=== PATIENT | male | born 1995 | race Two or more races ===

== ENCOUNTER 2023-05-04 15:21 | Outpatient (CLI) | payer OTHER ==
--- NOTE | 2023-05-04 16:04 | Sleep Patient Instructions ---
Sleep Center Visit Summary - Patient Visit Information Reason for Visit: Initial consult for evaluation of sleep disordered breathing and other sleep issues. - Patient Instructions Instructions Attached: Sleep Study Home Monitor Additional Instructions: You will be completing a sleep study, either an in-lab polysomnography (PSG) or home sleep study (HST). You will follow-up in the sleep care office after the sleep study is completed to hear the results and talk about therapy, if needed. You will be called by our office staff to schedule this appointment, but you may contact us with any questions. - Clinic Information Contact: [facility] [address] [place] [address] [email or web address] T: [phone]
--- NOTE | 2023-05-04 16:11 | SLEEP CARE CONSULTATION ---
Information from patient questionnaire entered by Kerry Iraheta. I have reviewed and concur with the information entered by Kerry Iraheta. This document represents the service I personally performed and the decisions made by me, Keerthi Harris ARNP. History of Present Illness Service Date and Time: 05/04/2023 1521 Reason for Visit: New patient Chief Complaint: reports: Insomnia (4+YRS), Unrefreshed sleep (4+YRS), Snoring (MOST OF LIFE), Observed pauses in breathing (MOST OF LIFE), Frequent awakenings at night (4+YRS) Usual bedtime: 11PM Time it takes to fall asleep: 30MINS TO 2HRS Snores at night: Yes Observed to quit breathing while asleep: Yes Sleeps alone due to snoring: No Number of times waking at night: 2-6 Reasons for waking at night: reports: Bathroom, Other (UNKNOWN). denies: Choking, Snoring, Gasping for air Toss, Turn, or Twitch while sleeping: Yes Recalls having dreams: Yes Usually gets out of bed at: 3-8AM Feels refreshed in the morning: No Morning headache: No Sleepy or fatigued during the day: Yes (some unintentional naps, not often) Ever fallen asleep while driving: No Takes day naps: Yes (3 times a month, 2-10 hours is average) Dreams during day naps: Yes Prior sleep studies: No Additional HPI information: I had the pleasure of seeing PATRICE GANDHI today regarding the possibility of him having a sleep disorder. His current complaints are frequent night awakenings, insomnia, observed pauses in breathing, snoring and unrefreshed sleep. He says he asked for a referral because he has "issues" with his sleep. He will have times that he goes to bed late and then wake up early in morning, after 2-3 hours and not be able to goes back to sleep. He does not wake up feeling rested. He has been told that he snores. He has sinus issues and his nose will get so congested that he has to breathe through his mouth. He has been told that he has pauses in breathing in his sleep. He does talk in his sleep. He does dream and remembers them. He says he has "fears" about getting up in time to get to work. If he cannot get to sleep and only has a few hours before he is suppose to get up, he will just not sleep that night. He had a time when he slept through his alarms and got in trouble at work because he was late for work and someone had to come to his home to get him up. He says sometimes he "dwells" on things that happen that will affect his ability to go to sleep. If there is a situation at work that bothers him and he does not deal with it before he goes home, he will think about it all night and not sleep well. He has ADHD, anxiety and depression issues for which he is treated. - Parasomnia Symptoms Ever been unable to move upon waking from sleep: Yes (sometimes) Walks in sleep: No Talks in sleep: Yes Ever acted out dreams in sleep: Yes (with vivid dreams; will have something in hand) Ever felt weak in the knees when startled or emotional: No Bothered by creepy, crawly, restless sensations in legs: Yes (4-5 times in a month) Problems with memory or concentration: Yes (both; treated for ADHD) Subjective Initial [place] Sleepiness Scale score: 9 (05/04/23) Past Medical History Past Medical History: reports: Anxiety, Asthma, Depression, Attention deficit Social History The patient's occupation is a AM. Patient is Single and lives in . Have you smoked in the past 12 months: Yes (vapes too) Cigarettes per day (20/pack): 20 Years of smokin Smoking Pack Years: 7.0 Alcohol use: Yes Alcohol amount and frequency: 2-5 DRINKS 2-3 XA MONTH Caffeine use: Yes Caffeine amount and frequency: 1-2 CANS M-F Family History Family history of sleep disordered breathing: Yes Family Hx Sleep Apnea: Mother: Snoring, Father: Snoring, Sibling: Snoring Allergies and Home Medications Known drug allergies: No Drug allergies reviewed: Yes Home medication list reviewed: Yes Allergy and home medication list: Allergies No Known Drug Allergies Allergy (Verified 04/29/23 17:19) Home Medications Medication Instructions Recorded Confirmed Last Taken Type Dextroamphetamine/Amphetamine See Rx Instructions .ROUTE .COMPLEX 05/04/23 05/04/23 Unknown History [Adderall 10 mg Tablet] Escitalopram [Lexapro] See Rx Instructions .ROUTE .COMPLEX 05/04/23 05/04/23 Unknown History Review of Systems Weight loss over past 5 years: 20 Cardiovascular: denies: high blood pressure Respiratory: reports: shortness of breath Gastrointestinal: denies: heartburn Neurological: denies: headaches Psychiatric: reports: Attention Deficit Hyperactivity, anxiety, depression, mood disorder Ear/Nose/Throat: reports: nasal congestion, sinus problems, nose bleeds, wisdom teeth removed. denies: tonsillectomy Endocrine: reports: sluggishness, too hot or cold, unexplained weakness Musculoskeletal: reports: neck pain, back pain, mobility problems Physical Exam Vital signs obtained and entered by: KERRY Chan MA Blood Pressure: 122/79 (LEFT ARM) Cuff size: regular Heart Rate: 74 O2 Saturation: 100 Height: 5 ft 6 in Weight: 117 lb 9.6 oz Body Mass Index: 18.9 BMI Classification: Normal Neck circumference: 13.5 Mouth and throat: narrow oropharynx Soft palate: long Hard palate: normal Uvula: normal Uvula visualization: 100% Mallampati Class I Tongue: enlarged in size with teeth ying on lateral edges Tonsils: 1+ Neck: normal w/o lymphadenopathy or thyromegaly Heart: regular rate and rhythm Lungs: clear bilaterally Impression and Plan 1. Suspected Obstructive Sleep Apnea-Hypopnea Syndrome, as suggested by a history of loud and irregular snoring, observed cessation of breath while asleep, frequent awakening during the night, unrefreshed sleep and cognitive impairment. Narrow oropharynx and obesity are common predisposing factors for obstructive sleep apnea-hypopnea syndrome. I recommend proceeding to polysomnography to confirm the diagnosis and to assess severity. If the patient has significant sleep disordered breathing, a manual CPAP titration study will also be performed to find the optimal treatment pressure. I informed the patient of what the sleep studies involve and after some discussion, obtained agreement to proceed. The pathophysiology of obstructive sleep apnea-hypopnea syndrome was discussed with the patient and health risks of cardiovascular and cerebrovascular disease if not treated. Risks of drowsy driving discussed in detail and patient advised to avoid long distance driving and to lathe puller at the first sign of drowsiness. Patient agreed to plan. * Schedule polysomnography +- manual CPAP titration study and return in 1-2 weeks after the study to discuss result and initiate therapy. * Avoid long distance driving or driving when feeling sleepy. * Avoid alcohol, sedative and muscle relaxant around bedtime. * Review instructions provided by trained office staff on how to prepare for the sleep study. * Return for follow-up after sleep study completed. Plan: PSG/HST Visit Type: In Office Time Spent with Patient (minutes): 32 Provider Statement: I spent 100% of the Face to Face Visit with the patient with greater than 50% spent counseling the patient and coordination of care.
[2023-05-04 16:13] VITALS: BP 122/79; O2SAT 100
== END 2023-05-04 15:22 | disposition home or self-care (01) ==
LOC: SC 15:21
PROVIDERS: ATTEND Nurse Practitioner Family
DX: G47.00 Insomnia, unspecified (principal); R06.81 Apnea, not elsewhere classified; R53.83 Other fatigue; G47.8 Other sleep disorders
CPT/HCPCS: 99203; 99212

== ENCOUNTER 2023-06-07 12:17 | Outpatient (CLI) | payer OTHER | END 2023-06-07 12:18 | disposition home or self-care (01) | LOC: SC 12:17 | PROVIDERS: ATTEND Nurse Practitioner Family | DX: R06.83 Snoring (principal); G47.8 Other sleep disorders; R06.81 Apnea, not elsewhere classified; R53.83 Other fatigue; F32.A Depression, unspecified | CPT/HCPCS: 95806 ==

== ENCOUNTER 2023-07-23 12:42 | Outpatient (CLI) | payer OTHER ==
--- NOTE | 2023-07-23 13:10 | Sleep Patient Instructions ---
Sleep Center Visit Summary - Patient Visit Information Reason for Visit: HST followup - Patient Instructions Additional Instructions: Your sleep study today was negative for significant sleep disordered breathing. You were found to have episodes of snoring. There are different ways to control snoring including weight loss, oral devices made by a dentist or surgical options through ENT specialist. You should not use oral devices that do not fit properly because they can affect your bite. You should also check insurance coverage of oral devices for snoring because they may not be cover well. You may obtain a referral to an ENT specialist through your primary provider. Follow-up as needed. - Clinic Information Contact: [facility] [address] [place] [id number] [email or web address] T: [phone]
--- NOTE | 2023-07-23 13:16 | SLEEP CARE CONSULTATION ---
Information from patient questionnaire entered by Kerry Iraheta. I have reviewed and concur with the information entered by Kerry Iraheta. This document represents the service I personally performed and the decisions made by , Keerthi Harris ARNP. History of Present Illness Service Date and Time: 07/23/2023 1242 Initial [place] Sleepiness Scale score: 9 (05/04/23) Current [place] Sleepiness Scale score: 10 (07/23/23) Additional HPI information: PATRICE GANDHI returns for follow up and results of the recently performed home sleep study. The patient was informed of the following findings: No significant sleep disordered breathing with an average AHI of 1.2 and gloria oxygen saturation of 93%. I explained the pathophysiology behind obstructive sleep apnea. Patient does not have sleep apnea and was advised how weight gain could increase the risk of developing sleep apnea in the future. Patient has light snoring. Snoring can be reduced by weight loss. Weight loss is best achieved with diet consult. Patient instructed to contact PCP for referral. Snoring can also be treated with an oral appliance from a dentist. Advised to check insurance coverage. In addition, an ENT evaluation can be do to see if other treatment is indicated. Patient counseled not drink alcohol less than 4 hours before bedtime as it can increase snoring and apnea. Patient was cautioned about risks of drowsy driving until sleepiness symptoms resolve. Patient denies drowsy driving. Sleep Study - Results Type of Sleep Study: Home sleep study (COMPLETED 06/07/23) Prior sleep studies: No Polysomnography/Home Sleep Study results: Physician Impression: The quality of the study is good. The length of the study is adequate (> 240 minutes). Please also see the tabulated and graphic data. 1. No significant sleep disordered breathing with an AHI of 1.2/hr and gloria SaO2 of 93%. During the study, the patient had 9 apneas (9 obstructive, 0 central, 0 mixed) and 1 hypopnea. The longest episode lasted 77.5 seconds. The patient slept adequately in supine position (supine AHI was 1.5 and non-supine, 1.12). Allergies and Home Medications Known drug allergies: No Drug allergies reviewed: Yes Home medication list reviewed: Yes (mirtazapine 15 mg for sleep, depression, mood swings) Allergy and home medication list: Allergies No Known Drug Allergies Allergy (Verified 07/21/23 11:08) Review of Systems Review of systems same as previous: Yes (NO CHANGE) Physical Exam Vital signs obtained and entered by: KERRY Chan MA Blood Pressure: 113/77 (RIGHT ARM) Cuff size: regular Heart Rate: 95 O2 Saturation: 98 Height: 5 ft 6 in Weight: 126 lb 12.8 oz Body Mass Index: 20.5 BMI Classification: Normal Impression and Plan 1. Snoring but no significant sleep disordered breathing. Patient advised that maintaining healthy weight loss will reduce snoring as well as apnea risk. An ENT consult can also be helpful to determine if any other treatment is an option. 2. Possible insomnia, unspecified. He has difficulty initiating sleep and will sometimes go days with little sleep because he is afraid of not being able to get up with alarm for work. He will wake up frequently on nights he can go to sleep. He has gotten in trouble for being late to work in the past because he did not awaken to his alarm. He is currently in therapy for his depression, moods and ADHD and was just started on mirtazapine with some improvement of being able to maintain sleep. Insomnia is generally caused by an irregular slee p schedule, spending too much time in bed, napping, caffeine, electronics, lack of a relaxing bedtime ritual and clock watching. Other factors can include anxiety/depression, pain, medications, and obstructive sleep apnea. Patient wishes to follow up with his behavioral health provider before any further evaluation of his sleep is done. * Follow up with behavioral health provider for insomnia * Maintain healthy weight weight * Avoid alcohol consumption near bedtime * Return as needed for follow up. Follow up with Sleep Care in: as needed Visit Type: In Office Time Spent with Patient (minutes): 20 Provider Statement: I spent 100% of the Face to Face Visit with the patient with greater than 50% spent counseling the patient and coordination of care.
[2023-07-23 13:24] VITALS: BP 113/77; O2SAT 98
== END 2023-07-23 12:43 | disposition home or self-care (01) ==
LOC: SC 12:42
PROVIDERS: ATTEND Nurse Practitioner Family
DX: R06.83 Snoring (principal); G47.8 Other sleep disorders; F32.A Depression, unspecified; F90.9 Attention-deficit hyperactivity disorder, unspecified type
CPT/HCPCS: 99212; 99213

== ENCOUNTER 2023-11-02 10:10 | Emergency (ER) | payer OTHER ==
[2023-11-02 11:01] LABS: BASOPHILS % (AUTO) 0.3 %; EOSINOPHILS # (AUTO) 0.1 10^3/uL (0.0-0.7); EOSINOPHILS % (AUTO) 1.4 %; HCT - HEMATOCRIT 43.2 % (42.0-52.0); LYMPHOCYTES # (AUTO) 0.8 10^3/uL (1.5-3.5); MEAN CORPUSCULAR HEMOGLOBIN 28.3 pg (27.0-31.0); MEAN CORPUSCULAR HGB CONC 32.4 g/dL (32.0-36.0); MEAN CORPUSCULAR VOLUME 87.3 fL (80.0-94.0); MEAN PLATELET VOLUME 9.2 fL (7.4-11.4); MONOCYTES # (AUTO) 0.6 10^3/uL (0.0-1.0); MONOCYTES % (AUTO) 9.3 %; NEUTROPHILS # (AUTO) 4.9 10^3/uL (1.5-6.6); NEUTROPHILS % (AUTO) 76.8 %; PLT - PLATELET COUNT 159 10^3/uL (130-450); RED BLOOD COUNT 4.95 10^6/uL (4.70-6.10); RED CELL DISTRIBUTION WIDTH 12.7 % (12.0-15.0); WHITE BLOOD COUNT 6.3 x10^3/uL (4.8-10.8)
[2023-11-02 11:14] LABS: ALBUMIN 4.4 g/dL (3.2-5.5); ALBUMIN/GLOBULIN RATIO 1.6 (1.0-2.2); ALKALINE PHOSPHATASE 62 IU/L (42-121); ALT ALANINE AMINOTRANSFERASE 20 IU/L (10-60); AST ASPARTATE AMINOTRANSFERASE 23 IU/L (10-42); BILIRUBIN,TOTAL 1.4 mg/dL (0.2-1.0); BUN - BLOOD UREA NITROGEN 14 mg/dL (6-20); CALCIUM 9.8 mg/dL (8.5-10.3); CARBON DIOXIDE - CO2 31 mmol/L (21-32); CHLORIDE 100 mmol/L (101-111); GFR - MDRD 89 (>89); GLUCOSE 97 mg/dL (74-104); LIPASE 17 U/L (11-82); POTASSIUM 4.2 mmol/L (3.5-4.5); SODIUM 137 mmol/L (135-145); TOTAL PROTEIN 7.2 g/dL (6.4-8.9)
[2023-11-02 11:20] LABS: TROPONIN I HIGH SENSITIVITY < 2.3 ng/L (2.3-19.7)
--- NOTE | 2023-11-02 12:14 | ED Physician Documentation ---
History of Present Illness - Stated complaint Stated Complaint: SOA LOC - Chief complaint Chief Complaint: Neuro - History obtained from History obtained from: Patient - Additonal information Additional information: 28-year-old male presented after a syncopal episode today. The patient has had several days of cough and URI symptoms, that he likely just had a cold, has been around some others that have been sick. Today he was going to the bathroom, voiding, when he woke up on the floor. No history of seizures, no known seizure-like activity, no injuries in the fall, no loss of bowel or bladder, no tongue biting. He states he had no prodromal symptoms no chest pain or difficulty breathing. He has Had syncopal episode in the past but not routinely, and denies any heart issues to his knowledge. He is in the [employer], works as a telephone claims representative. Review of Systems Constitutional: reports: Reviewed and negative Eyes: reports: Reviewed and negative Ears: reports: Reviewed and negative Nose: reports: Rhinorrhea / runny nose, Congestion Throat: reports: Reviewed and negative Cardiac: reports: Reviewed and negative Respiratory: reports: Cough GI: reports: Reviewed and negative : reports: Reviewed and negative Skin: reports: Reviewed and negative Musculoskeletal: reports: Reviewed and negative Neurologic: reports: Syncope, LOC. denies: Generalized weakness, Focal weakness, Numbness, Difficulty speaking, Seizure, Confused, Headache, Head injury Psychiatric: reports: Reviewed and negative PD PAST MEDICAL HISTORY - Past Medical History Past Medical History: Yes Cardiovascular: None Respiratory: None Neuro: None Endocrine/Autoimmune: None GI: None : None HEENT: None Psych: Anxiety, ADD/ADHD Musculoskeletal: None Derm: None - Past Surgical History Past Surgical History: No - Present Medications Home Medications: Ambulatory Orders Medication Instructions Recorded Confirmed Dextroamphetamine/Amphetamine See Rx Instructions .ROUTE .COMPLEX 05/04/23 11/02/23 [Adderall 10 mg Tablet] Escitalopram [Lexapro] See Rx Instructions .ROUTE .COMPLEX 05/04/23 11/02/23 - Allergies Allergies/Adverse Reactions: Allergies Allergy/AdvReac Type Severity Reaction Status Date / Time No Known Drug Allergies Allergy Verified 11/02/23 10:33 - Social History Does the pt smoke?: Yes Smoking Status: Current every day smoker Does the pt drink ETOH?: Yes Does the pt have substance abuse?: No - Immunizations Immunizations are current?: Yes - POLST Patient has POLST: No PD ED PE NORMAL - Vitals Vital signs reviewed: Yes - General General: Alert and oriented X 3, No acute distress, Well developed/nourished - HEENT HEENT: Atraumatic, PERRL, EOMI, Moist mucous membranes - Neck Neck: Supple, no meningeal sign, No adenopathy, C-Spine cleared by NEXUS criteria - Cardiac Cardiac: RRR, No murmur, No gallop, No rub - Respiratory Respiratory: No respiratory distress, Clear bilaterally - Abdomen Abdomen: Normal bowel sounds, Soft, Non tender, Non distended - Back Back: No CVA TTP, No spinal TTP, Other - Derm Derm: Normal color, Warm and dry Results - Vitals Vitals: Vital Signs - 24 hr 11/02/23 11/02/23 11/02/23 10:34 12:39 13:09 Temperature 37.1 C 36.8 C Heart Rate 103 H 78 89 Respiratory 16 16 16 Rate Blood Pressure 130/77 124/80 105/78 O2 Saturation 99 98 98 Oxygen O2 Source Room air - EKG (time done) No standard instances EKG releavant findings:: EKG personally interpreted by author of this note. Relevant findings are: Rate: Rate (enter#) (105) Rhythm: Sinus tachycardia [place]: Normal Intervals: Normal [place] QRS: Normal Ischemia: Normal ST segments Computer interpretation: Agree with computer - Labs Labs: Laboratory Tests 11/02/23 11/02/23 11/02/23 10:46 10:54 10:54 WBC 6.3 RBC 4.95 Hgb 14.0 Hct 43.2 MCV 87.3 MCH 28.3 MCHC 32.4 RDW 12.7 Plt Count 159 MPV 9.2 Neut # (Auto) 4.9 Lymph # (Auto) 0.8 L [place] # (Auto) 0.6 Eos # (Auto) 0.1 Baso # (Auto) 0.0 Absolute Nucleated RBC 0.00 Nucleated RBC % 0.0 Sodium 137 Potassium 4.2 Chloride 100 L Carbon Dioxide 31 Anion Gap 6.0 BUN 14 Creatinine 1.0 Estimated GFR (MDRD) 89 Glucose 97 POC Whole Bld Glucose 118 H Calcium 9.8 Total Bilirubin 1.4 H AST 23 ALT 20 Alkaline Phosphatase 62 Troponin I High Sens < 2.3 L Total Protein 7.2 Albumin 4.4 Globulin 2.8 Albumin/Globulin Ratio 1.6 Lipase 17 Nasal Adenovirus (PCR) Nasal B. parapertussis DNA (PCR) Nasal Coronavir 229E PCR Nasal Coronavir HKU1 PCR Nasal Coronavir NL63 PCR Nasal Coronavir OC43 PCR Nasal Enterovir/Rhinovir PCR Nasal Influenza B PCR Nasal Influenza A PCR Nasal Parainfluen 1 PCR Nasal Parainfluen 2 PCR Nasal Parainfluen 3 PCR Nasal Parainfluen 4 PCR Nasal RSV (PCR) Nasal B.pertussis DNA PCR Nasal C.pneumoniae (PCR) Theo Human Metapneumo PCR Nasal M.pneumoniae (PCR) Nasal SARS-CoV-2 (PCR) 11/02/23 12:15 WBC RBC Hgb Hct MCV MCH MCHC RDW Plt Count MPV Neut # (Auto) Lymph # (Auto) [place] # (Auto) Eos # (Auto) Baso # (Auto) Absolute Nucleated RBC Nucleated RBC % Sodium Potassium Chloride Carbon Dioxide Anion Gap BUN Creatinine Estimated GFR (MDRD) Glucose POC Whole Bld Glucose Calcium Total Bilirubin AST ALT Alkaline Phosphatase Troponin I High Sens Total Protein Albumin Globulin Albumin/Globulin Ratio Lipase Nasal Adenovirus (PCR) NOT DETECTED Nasal B. parapertussis DNA (PCR) NOT DETECTED Nasal Coronavir 229E PCR NOT DETECTED Nasal Coronavir HKU1 PCR NOT DETECTED Nasal Coronavir NL63 PCR NOT DETECTED Nasal Coronavir OC43 PCR NOT DETECTED Nasal Enterovir/Rhinovir PCR NOT DETECTED Nasal Influenza B PCR NOT DETECTED Nasal Influenza A PCR NOT DETECTED Nasal Parainfluen 1 PCR NOT DETECTED Nasal Parainfluen 2 PCR NOT DETECTED Nasal Parainfluen 3 PCR NOT DETECTED Nasal Parainfluen 4 PCR NOT DETECTED Nasal RSV (PCR) NOT DETECTED Nasal B.pertussis DNA PCR NOT DETECTED Nasal C.pneumoniae (PCR) NOT DETECTED Theo Human Metapneumo PCR NOT DETECTED Nasal M.pneumoniae (PCR) NOT DETECTED Nasal SARS-CoV-2 (PCR) NOT DETECTED - Rads (name of study) No standard instances Relevant Findings:: Final report received PD Medical Decision Making - ED course Complexity details: reviewed results, re-evaluated patient, considered differential, d/w patient ED course: This is a 28-year-old male who presented after syncopal episode today as described in HPI. The patient was voiding when he passed out. He sustained a contusion to his upper back but no other acute injuries on physical exam. He has had some viral URI type symptoms for the last few days and therefore we did a viral panel which was reassuring, no acute findings there. CBC, CMP and troponin are negative for any thing concerning, EKG and chest x-ray also reassuring. I discussed with patient and he this may be due to dehydration or vasovagal or micturition syncope. He has not no other chest symptoms to suggest a cardiogenic cause and there was no seizure-like activity or postictal period for I think unlikely to be seizure. I gave the patient a liter of normal saline and advised to stay well-hydrated, discussed supportive measures for viral i llness as well as return precautions if she has recurrent episodes of syncope. Otherwise patient should follow-up with his primary doctor, discuss possible Zio patch though I think this episode is more likely due to some mild dehydration and cold symptoms.In any case, patient is stable for discharge home at this time, return precautions reviewed. Departure - Departure Disposition: 01 Home, Self Care Clinical Impression: Viral syndrome Syncope Qualifiers: Syncope type: unspecified Qualified Code(s): R55 - Syncope and collapse Condition: Good Instructions: ED Syncope Vasovagal, ED Viral Syndrome Comments: Dimas, your workup here was reassuring, your COVID test is negative, your labs are all stable. Your EKG and chest x-ray are also good. You likely passed out from mild dehydration And something called vasovagal syncope. I recommend that you rest today, stay well-hydrated, and return if you have worsening symptoms.. Forms: PCP List, Activity restrictions Discharge Date/Time: 11/02/23 13:38
[2023-11-02 12:21] LABS: B. PARAPERTUSSIS- RESP PCR PAN NOT DETECTED; B. PERTUSSIS- RESP PCR PANEL NOT DETECTED; C. PNEUMONIAE- RESP PCR PANEL NOT DETECTED; CORONAVIRUS 229E-RESP PCR NOT DETECTED; CORONAVIRUS HKU1-RESP PCR NOT DETECTED; CORONAVIRUS NL63-RESP PCR NOT DETECTED; CORONAVIRUS OC43-RESP PCR NOT DETECTED; HUMAN METAPNEUMOVIRUS NOT DETECTED; INFLUENZA A- RESP PCR PANEL NOT DETECTED; INFLUENZA B - RESP PCR PANEL NOT DETECTED; M. PNEUMONIAE- RESP PCR PANEL NOT DETECTED; PARAINFLUENZA VIRUS 1 NOT DETECTED; PARAINFLUENZA VIRUS 2 NOT DETECTED; PARAINFLUENZA VIRUS 3 NOT DETECTED; PARAINFLUENZA VIRUS 4 NOT DETECTED; RHINOVIRUS/ENTEROVIRUS NOT DETECTED; RSV- RESP PCR PANEL NOT DETECTED; SARS-CoV-2 -RESP PCR PANEL NOT DETECTED
--- NOTE | 2023-11-02 12:26 | XRAY Report ---
PROCEDURE: Chest 1V INDICATIONS: cough and dyspnea TECHNIQUE: One view of the chest was acquired. COMPARISON: None. FINDINGS: Surgical changes and devices: None. Lungs and pleura: No dense consolidation or pleural effusion Mediastinum: Normal heart size Bones and chest wall: No suspicious bony lesions. Overlying soft tissues appear unremarkable. IMPRESSION: No acute radiographic abnormality on this limited single view study. Reviewed by: Amando Gilbert MD on 11/02/2023 12:25 PM PDT Approved by: Amando Gilbert MD on 11/02/2023 12:25 PM PDT Station ID: [id number]
[2023-11-02] MEDS: SODIUM CHLORIDE 0.9% 1,000 ML IV STA (12:44)
[2023-11-02 13:17] VITALS: BP 105/78; O2SAT 98
== END 2023-11-02 13:38 | disposition home or self-care (01) ==
LOC: ED 10:10
DX: R55 Syncope and collapse (principal); B34.9 Viral infection, unspecified; S20.229A Contusion of unspecified back wall of thorax, initial encounter; W19.XXXA Unspecified fall, initial encounter; R00.0 Tachycardia, unspecified; Z20.818 Contact with and (suspected) exposure to other bacterial communicable diseases; Z20.822 Contact with and (suspected) exposure to COVID-19; Z20.828 Contact with and (suspected) exposure to other viral communicable diseases
CPT/HCPCS: 36415; 80053; 83690; 84484; 85025; 87633; 93005; 99283; 99284